=== PATIENT | male | born 1970 | race Two or more races ===

== ENCOUNTER 2017-10-15 00:55 | Emergency (ER) | payer OTHER ==
[~2017-10-15] VITALS: Ht 170.2 cm; Wt 79.8 kg
--- NOTE | 2017-10-15 01:40 | Diagnostic Imaging Report ---
EXAMINATION: Head CT without contrast. HISTORY:Left facial droop for 3 days. COMPARISON:None. TECHNIQUE: Multidetector axial images were obtained from the foramen magnum to the vertex without contrast. The images were reconstructed using brain and bone algorithms. Thin section brain images were reformatted into coronal and sagittal planes. Intravenous contrast: None IMAGE QUALITY: Acceptable. FINDINGS: Skull/scalp: No lytic or blastic. lesions. No surgical changes. Parenchyma: No abnormal density. No acute hemorrhage, mass or acute major vascular territorial infarct. Arteries: No density suggestive of thrombosis. Dural sinuses: No abnormal density suggestive of thrombosis. Ventricles: Mild compensated dilatation due to volume loss. No hydrocephalus. Extra-axial spaces: No abnormal density. Brain volume: Mild generalized cerebral volume loss, advanced for patient's given age. Craniocervical junction: No mass, Chiari malformation, or basilar invagination. Sella: No mass. Paranasal/mastoid sinuses: Mild mucosal thickening in right posterior ethmoid sinus. IMPRESSION: No acute intracranial abnormality. Signed by: Dr. Rebecca Jimenez M.D. on 10/15/2017 1:36 AM
== END 2017-10-15 02:04 | disposition home or self-care (01) ==
LOC: ER 00:55 → EEVIPCON 00:55 → ER 02:04
DX: R53.1 Weakness (principal); G51.0 Bell's palsy; I10 Essential (primary) hypertension
CPT/HCPCS: 70450; 99283